=== PATIENT | female | born 1975 | race Caucasian/White ===

== ENCOUNTER 2019-11-17 17:22 | Observation (INO) ==
[2019-11-17 18:04] LABS: Basophils # 0.1 K/mcL (0.0-0.2); Basophils % 0.8 %; Eosinophils # 0.4 K/mcL (0.0-0.6); Eosinophils % 3.5 %; Hematocrit 39.6 % (35.3-44.9); Hemoglobin 13.5 g/dL (11.5-15.4); Immature Granulocytes % 0.5 % (0-4); Lymphocytes # 1.9 K/mcL (0.6-4.6); Lymphocytes % 17.3 %; Mean Corpuscular HGB Conc 34.1 g/dL (31.6-35.5); Mean Corpuscular Hemoglobin 30.5 pg (28.0-33.3); Mean Corpuscular Volume 89.6 fL (83.0-100.0); Mean Platelet Volume 10.2 fL (9.4-12.4); Monocytes # 0.5 K/mcL (0.0-1.3); Monocytes % 4.3 %; Neutrophils # 8.3 K/mcL (1.6-8.9); Platelet Count 274 K/mcL (140-400); Red Blood Count 4.42 M/mcL (3.82-4.97); Red Cell Distribution Width 11.9 % (11.5-14.5); Segmented Neutrophils % 73.6 %; White Blood Count 11.2 K/mcL (4.3-11.1)
[2019-11-17 18:09] LABS: INR 1.1; Prothrombin Time 12.4 Seconds (9.4-12.1)
[2019-11-17 18:12] LABS: Activated Partial Thrombo Time 29.4 Seconds (26.0-36.0)
[2019-11-17 18:25] LABS: BUN/Creatinine Ratio 14 (6-26); Blood Urea Nitrogen 9 mg/dL (6-20); Calcium 9.5 mg/dL (8.6-10.3); Carbon Dioxide 24 mEq/L (23-29); Chloride 105 mEq/L (98-107); Glucose 110 mg/dL (70-105); Osmolality,Calculated 285 (280-300); Potassium 3.9 mEq/L (3.5-5.1); Sodium 138 mEq/L (136-145); eGFR For African Americans > 60 (> 60); eGFR For Non-African Americans > 60 (> 60)
[2019-11-17 18:26] LABS: Troponin I < 0.03 ng/mL (< 0.04)
[2019-11-17 18:40] LABS: Thyroid Stimulating Hormone 4.181 mcIU/mL (0.340-5.600)
[2019-11-17 18:41] LABS: Triiodothyronine (T3) Free 3.77 pg/mL (2.50-3.90)
[2019-11-17] MEDS ORDERED: 0.9 % Sodium Chloride 1,000 ML IVC ONE (19:56)
[2019-11-17 21:39] LABS: Amphetamine Screen,Urine Negative ng/mL (Cutoff=1000); Barbiturate Screen,Urine Negative ng/mL (Cutoff=200); Benzodiazepines Screen,Urine Negative ng/mL (Cutoff=200); Cannabinoid Screen,Urine Negative ng/mL (Cutoff = 50); Cocaine Screen,Urine Negative ng/mL (Cutoff= 300); Opiate Screen,Urine Negative ng/mL (Cutoff=300); Phencyclidine Screen,Urine Negative ng/mL (Cutoff=25)
[2019-11-17] MEDS ORDERED: Naloxone 0.4 MG/ML INJ IVP PRN (22:03)
[2019-11-17] MEDS ORDERED: Acetaminophen 325 MG TABLET PO PRN (22:37)
[2019-11-17] MEDS: Ibuprofen 600 MG TABLET PO PRN (23:20)
[2019-11-18 00:23] LABS: Basophils % 0.4 %; Eosinophils # 0.1 K/mcL (0.0-0.6); Eosinophils % 0.7 %; Hematocrit 37.8 % (35.3-44.9); Hemoglobin 12.9 g/dL (11.5-15.4); Immature Granulocytes % 0.5 % (0-4); Lymphocytes # 1.2 K/mcL (0.6-4.6); Lymphocytes % 11.1 %; Mean Corpuscular HGB Conc 34.1 g/dL (31.6-35.5); Mean Corpuscular Hemoglobin 30.3 pg (28.0-33.3); Mean Corpuscular Volume 88.7 fL (83.0-100.0); Mean Platelet Volume 10.1 fL (9.4-12.4); Monocytes # 0.3 K/mcL (0.0-1.3); Monocytes % 2.6 %; Neutrophils # 9.3 K/mcL (1.6-8.9); Platelet Count 278 K/mcL (140-400); Red Blood Count 4.26 M/mcL (3.82-4.97); Red Cell Distribution Width 11.9 % (11.5-14.5); Segmented Neutrophils % 84.7 %
[2019-11-18 00:44] LABS: BUN/Creatinine Ratio 13 (6-26); Blood Urea Nitrogen 7 mg/dL (6-20); Calcium 9.5 mg/dL (8.6-10.3); Carbon Dioxide 24 mEq/L (23-29); Chloride 108 mEq/L (98-107); Glucose 128 mg/dL (70-105); Osmolality,Calculated 290 (280-300); Sodium 140 mEq/L (136-145); eGFR For African Americans > 60 (> 60); eGFR For Non-African Americans > 60 (> 60)
[2019-11-18] MEDS: 0.9 % Sodium Chloride 1,000 ML IVC SCH ×2 (01:10→08:52)
[2019-11-18 05:52] VITALS: BP 117/80
[2019-11-18] MEDS ORDERED: Sucralfate 1 GM TABLET PO SCH (07:30)
[2019-11-18] MEDS: Ibuprofen 600 MG TABLET PO PRN (13:37)
== END 2019-11-18 15:50 | disposition home or self-care (01) ==
LOC: EMEROOARM 17:22 → 3BNU 17:22
PROVIDERS: ADMIT Internal Medicine; ATTEND Internal Medicine